=== PATIENT | male | born 1990 | race African-American/Black ===

== ENCOUNTER 2016-12-12 10:43 | Emergency (ER) | payer OTHER ==
[2016-12-12] MEDS ORDERED: Bupivacaine 0.5% 10 ML VIAL ONE (11:01)
[2016-12-12] MEDS ORDERED: Bacitracin Zinc 1 Packet ONE (11:39)
[2016-12-12] MEDS ORDERED: Amoxicillin/Potassium Clav 875 MG TAB ONE (11:47)
[2016-12-12] MEDS ORDERED: Acetaminophen 325 MG TAB ONE (11:47)
== END 2016-12-12 12:00 ==
LOC: NAV ERS 10:43
DX: S01.511A Laceration without foreign body of lip, initial encounter (principal); E03.9 Hypothyroidism, unspecified; Z79.899 Other long term (current) drug therapy; W22.09XA Striking against other stationary object, initial encounter
CPT/HCPCS: 12011; 12052; J3490